=== PATIENT | male | born 1975 | race Two or more races ===

== ENCOUNTER 2016-10-06 14:56 | Emergency (ER) | payer MEDICAID, SELFPAY ==
[~2016-10-06] VITALS: Ht 188 cm; Wt 88.5 kg
[~2016-10-06 14:56] MED LIST: ALPRAZOLAM0.25 MG ORAL; DILANTIN100 MG ORAL; LEVETIRACETAM500 MG ORAL; ZANTAC150 MG ORAL
[2016-10-06 16:40] VITALS: BP 112/74
[2016-10-06 16:42] VITALS: BP 112/74
--- NOTE | 2016-10-06 17:05 | Emergency Room Report ---
History of Present Illness General Chief Complaint: Wound Recheck/Suture Removal Source: Patient Present Illness HPI The patient is a 41-year-old male presenting for suture removal. The patient was seen in this emergency department one week prior for a laceration of the face after falling due to a seizure. The patient has not been able to followup with primary doctor or neurologist yet. He denies any symptoms since the last ER visit including pain, numbness or tingling, weakness, headaches, dizziness, blurred vision, rash, fever, chills Allergies: Coded Allergies: PHENYTOIN (Unverified Allergy, Unknown, 02/14/16) Patient History Past Medical History: see triage record Pertinent Family History: none Reviewed Nursing Documentation: PMH: Agreed, PSxH: Agreed Nursing Documentation-PMH Past Medical History: No History, Except For Hx Gastrointestinal Problems: Yes - hx of appendectomy Hx Seizures: Yes Review of Systems All Other Systems: negative except mentioned in HPI Physical Exam Vital Signs Date Time Temp Pulse Resp B/P Pulse Ox O2 Delivery O2 Flow Rate FiO2 10/06/16 15:01 97.7 83 14 112/74 96 Room Air Sp02 EP Interpretation: reviewed, normal General Appearance: no apparent distress, alert, GCS 15, non-toxic Head: normocephalic, other - 14 sutures from R eyebrow to mid forehead ENT: hearing grossly normal, normal pharynx, no angioedema, normal voice Musculoskeletal: back normal, gait/station normal, normal range of motion, non- tender Neurologic: alert, oriented x3, responsive, motor strength/tone normal, sensory intact, normal gait, speech normal Psychiatric: judgement/insight normal, memory normal, mood/affect normal, no suicidal/homicidal ideation Skin: no rash, normal turgor, other - [address] No bleeding. No DC. well healing Lymphatic: no adenopathy Medical Decision Making PA Attestation Dr. Mcfadden is my supervising physician. Patient management was discussed with my supervising physician Diagnostic Impression: Primary Impression: Encounter for removal of sutures Additional Impression: Encounter for wound re-check ER Course The patient is a 41-year-old male presenting for suture removal. Differential diagnosis considered: Wound infection, nonhealing wound, cellulitis , abscess Physical exam: Vitals within normal limits. There are [address] from the right eyebrow to the midforehead. Well approximated. No bleeding. No erythema. No discharge Suture removal: 14 simple interrupted sutures were removed without complication. The patient will continue to keep the wound clean and dry. He will followup with neurologist as soon as possible. ER precautions are given Last Vital Signs Date Time Temp Pulse Resp B/P Pulse Ox O2 Delivery O2 Flow Rate FiO2 10/06/16 16:42 97.7 65 14 112/74 96 Room Air Status: improved Disposition: HOME, SELF-CARE Condition: Improved Referrals: NOT CHOSEN IPA/MD,REFERRING Patient Instructions: Wound Check, Suture Removal, Care After Additional Instructions: I discussed my findings with the patient. All questions and concerns have been answered. Treatment and medication compliance have been addressed. I advised the patient that they need to follow up with PMD in 3-5 days. Return to ED if symptoms worsen, new symptoms arise, or if needed for any reason. Patient verbalized understanding of discharge instructions. The patient will continue to keep the wound clean and dry. The patient is to followup with primary doctor and neurologist as soon as possible ADAMARIS THOMAS October 06, 2016 17:05
== END 2016-10-06 16:46 | disposition home or self-care (01) ==
LOC: EMR 15:17
DX: Z48.02 Encounter for removal of sutures (principal)
CPT/HCPCS: 99281

== ENCOUNTER 2016-12-11 10:57 | Emergency (ER) | payer MEDICAID ==
[~2016-12-11] VITALS: Ht 188 cm; Wt 88.5 kg
[2016-12-11] MEDS ORDERED: KEPPRA500 M4 ORAL (11:03)
[2016-12-11 11:35] VITALS: BP 119/84
[2016-12-11] MEDS ORDERED: Albuterol ud Inhalation HHN ONE (11:45)
[2016-12-11] MEDS ORDERED: Ipratropium 0.02% Inh Soln 2.5ml UD HHN ONE (11:45)
--- NOTE | 2016-12-11 13:02 | Emergency Room Report ---
History of Present Illness General Chief Complaint: Upper Respiratory Illness Source: Patient, Medical Record Present Illness HPI Several days of URI with wheezing. Productive cough with phlegm. Feels breathless. Denies chest pain. No NVD. No chills or fevers. GONG slight. No rashes. [place] worse after smoking (less able to get breath). Dayquil with some help. Seen here September for seizure. On meds now. No rashes, extremity pain, dysuria. Anxious. Allergies: Coded Allergies: PHENYTOIN (Unverified Allergy, Unknown, 02/14/16) Patient History Past Medical History: see triage record Social History: Reports: drug use - in past, smoking Social History Narrative at home Reviewed Nursing Documentation: PMH: Agreed, PSxH: Agreed Nursing Documentation-PMH Past Medical History: No History, Except For Hx Gastrointestinal Problems: Yes - hx of appendectomy Hx Seizures: Yes Review of Systems All Other Systems: negative except mentioned in HPI Physical Exam Vital Signs Date Time Temp Pulse Resp B/P Pulse Ox O2 Delivery O2 Flow Rate FiO2 12/11/16 11:01 98.2 94 16 116/79 96 Room Air General Appearance: well appearing, no apparent distress, alert, GCS 15 Head: normocephalic, other - old scar R forehead Eyes: bilateral eye PERRL, bilateral eye Scleral Injection ENT: hearing grossly normal, normal voice, uvula midline, moist mucus membranes Neck: full range of motion, supple Respiratory: no respiratory distress, speaking full sentences, wheezing, expiration - post tussive Cardiovascular #1: regular rate, rhythm Cardiovascular #2: 2+ radial (L) Gastrointestinal: non tender, scaphoid Musculoskeletal: back normal, digits/nails normal, gait/station normal, normal range of motion, no calf tenderness Neurologic: alert, oriented x3, normal gait, grossly normal Psychiatric: mood/affect normal Skin: no rash Medical Decision Making Diagnostic Impression: Primary Impression: Acute bronchitis with bronchospasm ER Course Patient with cough, wheezing and productive phlegm. DDx; pneumonia, bronchitis , bronchospasm amongst others. As wheezing with purulent phlegm, antibiotics and breathing treatments indicated. Improved with albuterol. Xray possibly mycoplasma. Patient not dyspneic and not toxic. Patient stable for outpatient observation and treatment. Chest X-Ray Diagnostic Results Chest X-Ray Diagnostic Results : Chest X-Ray Ordered: Yes # of Views/Limited/Complete: 1 View Indication: Shortness of Breath EP Interpretation: Yes Interpretation: no consolidation, no effusion, no pneumothorax, other - possible mycoplasma - though mainly clear Impression: No acute disease Interpreting ER Provider: Electronically signed Nate Mcfadden MD Last Vital Signs Date Time Temp Pulse Resp B/P Pulse Ox O2 Delivery O2 Flow Rate FiO2 12/11/16 13:15 86 16 103/82 100 Room Air 12/11/16 11:35 98.4 Status: improved Disposition: HOME, SELF-CARE Condition: Improved Scripts Albuterol Sulfate* (ALBUTEROL SULFATE MDI*) 8.5 Gm Hfa.aer.ad 2 PUFF INH Q6H, #1 EA 0 Refills Prov: Nate Mcfadden M.D. 12/11/16 Azithromycin* (ZITHROMAX*) 250 Mg Tablet 250 MG ORAL DAILY for 4 Days, TAB 0 Refills Prov: Nate Mcfadden M.D. 12/11/16 Guaifenesin/Codeine Phos* (ROBITUSSIN AC*) 118 Ml Liquid 5 ML ORAL Q6H Y for For Cough, #90 ML 0 Refills Prov: Nate Mcfadden M.D. 12/11/16 Referrals: [facility],REFERRING (PCP) Nate Mcfadden M.D. Dec 11, 2016 13:02
[2016-12-11] MEDS ORDERED: ALBUTEROL SULF8.5 GM INH (13:04)
[2016-12-11] MEDS ORDERED: GUAIFENESIN-CO118 M1 ORAL (13:04)
[2016-12-11] MEDS ORDERED: AZITHROMYCIN250 MG ORAL (13:04)
[2016-12-11 13:15] VITALS: BP 103/82
--- NOTE | 2016-12-11 15:02 | Diagnostic Imaging Report ---
Indication: COUGH shortness of breath Technique: One view of the chest Comparison: 08/06/2014 Findings: Lungs and pleural spaces are clear. Heart size is normal . No significant interim change Impression: No acute process
== END 2016-12-11 13:18 | disposition home or self-care (01) ==
LOC: EMR 11:25
DX: J20.9 Acute bronchitis, unspecified (principal); Z87.891 Personal history of nicotine dependence; Z88.8 Allergy status to other drugs, medicaments and biological substances
CPT/HCPCS: 71010; 94640; 99284

== ENCOUNTER 2018-11-14 01:46 | Emergency (ER) | payer MEDICAID, OTHER ==
[~2018-11-14] VITALS: Ht 188 cm; Wt 83.9 kg
[~2018-11-14 01:46] MED LIST changes: +ALBUTEROL SULF8.5 GM INH; +AZITHROMYCIN250 MG ORAL; +CLINDAMYCIN HC150 MG ORAL; +GUAIFENESIN-CO118 M1 ORAL; +IBUPROFEN600 MG ORAL; +KEPPRA500 M4 ORAL
[2018-11-14] MEDS: Ketorolac 30mg Inj IV ONE (02:17)
--- NOTE | 2018-11-14 02:17 | Emergency Room Report ---
History of Present Illness General Chief Complaint: Chest Pain Source: Patient Present Illness HPI Patient is a 43-year-old male who presented after increased sharp left-sided chest pain. Patient had acute onset of symptoms. He reports having sharp pain to the left side of his chest. He denies any prior cardiac history. He denies any recent travel. He reports having prior history of seizures. Patient denies any drug use. He reports having severe pain which was unchanged by position.He reports having palpitations and tachycardia. Allergies: Coded Allergies: PHENYTOIN (Unverified Allergy, Unknown, 02/14/16) Patient History Past Medical History: seizures Reviewed Nursing Documentation: PMH: Agreed; PSxH: Agreed Nursing Documentation-PMH Hx Gastrointestinal Problems: Yes - hx of appendectomy Hx Seizures: Yes Review of Systems All Other Systems: negative except mentioned in HPI Physical Exam Vital Signs Date Time Temp Pulse Resp B/P (MAP) Pulse Ox O2 Delivery O2 Flow Rate FiO2 11/14/18 01:52 138 22 97 Room Air Sp02 EP Interpretation: reviewed, normal General Appearance: normal inspection, well appearing, no apparent distress, alert, GCS 15 Head: atraumatic ENT: normal ENT inspection, hearing grossly normal, normal voice Neck: normal inspection, full range of motion, supple, no bony tend Respiratory: normal inspection, lungs clear, normal breath sounds, no respiratory distress, no retraction, no wheezing Cardiovascular #1: no edema, tachycardia Gastrointestinal: normal inspection, normal bowel sounds, non tender, soft, no guarding, no hernia Genitourinary: no CVA tenderness Musculoskeletal: normal inspection, back normal, normal range of motion Neurologic: normal inspection, alert, oriented x3, responsive, 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 Differential diagnosis include was not limited to alcohol withdrawal, methanol ingestion, amphetamine abuse among others. Because of complexity of patient's case laboratory testing and imaging studies were ordered.EKG interpreted by me shows sinus tachycardia without acute ST or T wave changes. CT the chest read by radiology showed no evidence of acute pulmonary embolism or pneumonia. Patient was noted to be initially tachycardic and was given IV fluids with improvement in symptoms and tachycardia.. Patient stated he felt better and wanted to go home. Patient appears to be stable for outpatient evaluation he was advised outpatient evaluation by his primary care physician for recheck. Labs Test 11/14/18 02:02 11/14/18 04:16 White Blood Count 7.5 K/UL (4.8-10.8) Red Blood Count 5.14 M/UL (4.70-6.10) Hemoglobin 15.1 G/DL (14.2-18.0) Hematocrit 43.2 % (42.0-52.0) Mean Corpuscular Volume 84 FL (80-99) Mean Corpuscular Hemoglobin 29.3 PG (27.0-31.0) Mean Corpuscular Hemoglobin Concent 34.8 G/DL (32.0-36.0) Red Cell Distribution Width 11.2 % (11.6-14.8) Platelet Count 195 K/UL (150-450) Mean Platelet Volume 7.2 FL (6.5-10.1) Neutrophils (%) (Auto) 49.8 % (45.0-75.0) Lymphocytes (%) (Auto) 37.5 % (20.0-45.0) Monocytes (%) (Auto) 6.9 % (1.0-10.0) Eosinophils (%) (Auto) 4.8 % (0.0-3.0) Basophils (%) (Auto) 1.0 % (0.0-2.0) Prothrombin Time 10.0 SEC (9.30-11.50) Prothromb Time International Ratio 0.9 (0.9-1.1) Activated Partial Thromboplast Time 26 SEC (23-33) D-Dimer 0.59 mg/L FEU (0.00-0.49) Sodium Level 139 MMOL/L (136-145) Potassium Level 3.5 MMOL/L (3.5-5.1) Chloride Level 102 MMOL/L (98-107) Carbon Dioxide Level 30 MMOL/L (21-32) Anion Gap 7 mmol/L (5-15) Blood Urea Nitrogen 18 mg/dL (7-18) Creatinine 1.0 MG/DL (0.55-1.30) Estimat Glomerular Filtration Rate > 60 mL/min (>60) Glucose Level 134 MG/DL (74-106) Calcium Level 9.1 MG/DL (8.5-10.1) Total Bilirubin 0.5 MG/DL (0.2-1.0) Aspartate Amino Transf (AST/SGOT) 42 U/L (15-37) Alanine Aminotransferase (ALT/SGPT) 36 U/L (12-78) Alkaline Phosphatase 56 U/L (46-116) Total Creatine Kinase 1765 U/L (26-308) Creatine Kinase MB 9.4 NG/ML (0.0-3.6) Creatine Kinase MB Relative Index 0.5 Troponin I 0.000 ng/mL (0.000-0.056) Pro-B-Type Natriuretic Peptide 31 pg/mL (0-125) Total Protein 7.9 G/DL (6.4-8.2) Albumin 4.0 G/DL (3.4-5.0) Globulin 3.9 g/dL Albumin/Globulin Ratio 1.0 (1.0-2.7) Lipase 172 U/L (73-393) Urine Opiates Screen Negative (NEGATIVE) Urine Barbiturates Screen Negative (NEGATIVE) Phencyclidine (PCP) Screen Negative (NEGATIVE) Urine Amphetamines Screen Negative (NEGATIVE) Urine Benzodiazepines Screen Negative (NEGATIVE) Urine Cocaine Screen Negative (NEGATIVE) Urine Marijuana (THC) Screen Positive (NEGATIVE) Last Vital Signs Date Time Temp Pulse Resp B/P (MAP) Pulse Ox O2 Delivery O2 Flow Rate FiO2 11/14/18 01:52 138 22 97 Room Air Status: improved Disposition: HOME, SELF-CARE Condition: Stable Scripts Omeprazole (OMEPRAZOLE) 20 Mg Capsule.dr 20 MG ORAL DAILY, #30 CAP Prov: Jose Roberto Pichardo MD 11/14/18 Ibuprofen* (MOTRIN*) 600 Mg Tablet 600 MG ORAL Q8H PRN for For Pain, #30 TAB 0 Refills Prov: Jose Roberto Pichardo MD 11/14/18 Jose Roberto Pichardo MD Nov 14, 2018 02:17
[2018-11-14 02:22] LABS: EOSINOPHILS % (AUTO) 4.8 % (0.0-3.0); HEMATOCRIT 43.2 % (42.0-52.0); HEMOGLOBIN 15.1 G/DL (14.2-18.0); LYMPHOCYTES % (AUTO) 37.5 % (20.0-45.0); MEAN CORPUSCULAR VOLUME 84 FL (80-99); MONOCYTES % (AUTO) 6.9 % (1.0-10.0); NEUTROPHILS % (AUTO) 49.8 % (45.0-75.0); PLATELET COUNT 195 K/UL (150-450); RED BLOOD COUNT 5.14 M/UL (4.70-6.10); RED CELL DISTRIBUTION WIDTH 11.2 % (11.6-14.8); WHITE BLOOD COUNT 7.5 K/UL (4.8-10.8)
[2018-11-14 02:34] LABS: INR 0.9 (0.9-1.1)
[2018-11-14 02:35] LABS: ANION GAP 7 mmol/L (5-15); BLOOD UREA NITROGEN 18 mg/dL (7-18); CALCIUM 9.1 MG/DL (8.5-10.1); CARBON DIOXIDE 30 MMOL/L (21-32); CHLORIDE 102 MMOL/L (98-107); POTASSIUM 3.5 MMOL/L (3.5-5.1); SODIUM 139 MMOL/L (136-145)
[2018-11-14] MEDS: LORazepam Inj 2mg/ml 1ml IV ONE (02:38)
[2018-11-14 02:48] LABS: ALANINE AMINOTRANSFERASE 36 U/L (12-78); ALKALINE PHOSPHATASE 56 U/L (46-116); ASPARTATE AMINO TRANSFERASE 42 U/L (15-37); BILIRUBIN,TOTAL 0.5 MG/DL (0.2-1.0); CKMB 9.4 NG/ML (0.0-3.6); CREATINE KINASE 1765 U/L (26-308)
[2018-11-14] MEDS ORDERED: Isovue-370 150ml vial INJ PRN (03:45)
[2018-11-14] MEDS: Albuterol/Ipratropium 3ml neb HHN ONE (04:00)
[2018-11-14 05:13] VITALS: BP 110/62
[2018-11-14] MEDS ORDERED: IBUPROFEN600 MG ORAL (06:09)
[2018-11-14] MEDS ORDERED: OMEPRAZOLE20 M2 ORAL (06:09)
[2018-11-14 06:24] VITALS: BP 110/62
--- NOTE | 2018-11-14 09:15 | Diagnostic Imaging Report ---
ndication: Chest pain and shortness of breath for one day Technique: IV administration nonionic contrast. Spiral acquisitions obtained from the lung bases to the lung apices. Multiplanar and 3-D reconstructions were generated. Total dose length product 726.47 mGycm. CTDIvol(s) 22.41 mGy. Dose reduction achieved using automated exposure control Comparison: none Findings: Portions of the lung bases are cut off of the exam. Pulmonary artery opacification is adequate. There is some image degradation at the lung bases due to motion artifact. No definite intraluminal filling defects or other findings to suggest acute pulmonary embolus demonstrated. No pulmonary artery dilatation or right ventricular dilatation. Normal branching anatomy of the great neck vessels which are patent. The lungs demonstrate a calcified granuloma in the right upper lobe. There is some linear atelectasis or scarring at both lung bases. No infiltrates, effusions, congestion, masses, or nodule demonstrated. There is minimal scarring and bullous change at the lung apices. The heart is upper limits normal in size. No pericardial effusion. No mediastinal or hilar mass or adenopathy. Normal esophagus. The included thyroid is unremarkable. No axillary or chest wall mass or adenopathy. There is mild thoracic kyphotic deformity. There is a wedge compression fracture deformity of the T5 vertebral body and questionably slightly of the T6 vertebral body. Impression: No evidence of pulmonary embolus or other acute thoracic pathology Evidence old granulomatous disease in the right lung Minimal bilateral basilar atelectasis or scarring Age-indeterminate T5 vertebral body compression fracture and questionable T6 mild compression fracture This agrees with the preliminary interpretation provided overnight by [facility]. The CT scanner at [facility] is accredited by the [employer] and the scans are performed using protocols designed to limit radiation exposure to as low as reasonably achievable to attain images of sufficient resolution adequate for diagnostic evaluation.
--- NOTE | 2018-11-14 09:38 | Diagnostic Imaging Report ---
Indication: Chest pain for 2 hours Technique: One view of the chest Comparison: none Findings: Inspiration is suboptimal. The lungs and pleural spaces are clear. The heart size is upper limits of normal. There is no significant interim change Impression: No acute process
== END 2018-11-14 06:25 | disposition home or self-care (01) ==
LOC: EMR 02:28
DX: R07.89 Other chest pain (principal); E86.0 Dehydration
CPT/HCPCS: 36415; 71045; 71275; 80053; 80307; 82550; 82553; 83690; 83880; 84484; 85025; 85379; 85610; 85730; 93005; 94640; 94664; 96361; 96374; 96375; 99284; J1885; Q9967; S0028; J7620

== ENCOUNTER 2018-12-12 21:04 | Emergency (ER) | payer OTHER ==
[~2018-12-12] VITALS: Ht 175.3 cm; Wt 77.1 kg
[~2018-12-12 21:04] MED LIST changes: +OMEPRAZOLE20 M2 ORAL
[2018-12-12 21:15] VITALS: BP 133/79
--- NOTE | 2018-12-12 21:15 | NUR ---
ED Nurse Note: Pt came from home c/o "fast heart rate" that occured twice today. Pt stated his LT arm felt weak and pain, LT eye became blurty, back of head has a tingely sesnation. 95HR, NSR. patient is alert and oriented x4, ambulatory with a steady gait
--- NOTE | 2018-12-12 21:26 | Emergency Room Report ---
History of Present Illness General Chief Complaint: Palpitations Source: Patient Present Illness HPI Is a 43-year-old male with history of seizure and previous methamphetamine abuse. Also history anxiety. He presents with chief complaint of palpitation. Occurred twice a day. He said heart was beating fast. Letter for a few minutes. He has some clamminess and numbness to his face and head. Also some sharp chest pain. This is similar to previous episode. He was here last month and work-up was negative for ACS and PE. 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 He is asymptomatic right now. Allergies: Coded Allergies: PHENYTOIN (Unverified Allergy, Unknown, 02/14/16) Patient History Past Medical History: see triage record, old chart reviewed Past Surgical History: appy Pertinent Family History: none Social History: Denies: smoking Immunizations: other Reviewed Nursing Documentation: PMH: Agreed; PSxH: Agreed Nursing Documentation-PMH Hx Gastrointestinal Problems: Yes - hx of appendectomy Hx Seizures: Yes Review of Systems Eye: Denies: eye pain, blurred vision ENT: Denies: ear pain, nose congestion, throat swelling Respiratory: Denies: cough, shortness of breath Cardiovascular: Reports: chest pain, palpitations Gastrointestinal: Denies: abdominal pain, diarrhea, nausea, vomiting Musculoskeletal: Denies: back pain, joint pain Skin: Denies: rash Neurological: Denies: headache, numbness Endocrine: Denies: increased thirst, increased urine Hematologic/Lymphatic: Denies: easy bruising All Other Systems: negative except mentioned in HPI Physical Exam Vital Signs Date Time Temp Pulse Resp B/P (MAP) Pulse Ox O2 Delivery O2 Flow Rate FiO2 12/12/18 21:15 98.2 95 13 133/79 (97) 98 Room Air Vitals normal Sp02 EP Interpretation: reviewed, normal General Appearance: well appearing, no apparent distress, alert Head: normocephalic, atraumatic Eyes: bilateral eye PERRL, bilateral eye EOMI ENT: hearing grossly normal, normal pharynx Neck: full range of motion, supple, no meningismus Respiratory: chest non-tender, lungs clear, normal breath sounds Cardiovascular #1: regular rate, rhythm, no murmur Gastrointestinal: normal bowel sounds, non tender, no mass, no organomegaly, no bruit, non-distended Musculoskeletal: back normal, gait/station normal, normal range of motion Psychiatric: mood/affect normal Medical Decision Making Diagnostic Impression: Primary Impression: Palpitations ER Course Patient presents with palpitation. This may be secondary to anxiety. Vitals are normal. Heart rate normal here. EKG normal. Will discharge home with recommendation for Holter monitor for log haul operator. EKG Diagnostic Results Rate: normal Rhythm: NSR ST Segments: no acute changes Rhythm Strip Diag. Results EP Interpretation: yes Rate: 89 Rhythm: NSR, no PVC's, no ectopy Last Vital Signs Date Time Temp Pulse Resp B/P (MAP) Pulse Ox O2 Delivery O2 Flow Rate FiO2 12/12/18 21:15 98.2 95 13 133/79 (97) 98 Room Air Status: unchanged Disposition: HOME, SELF-CARE Condition: Stable Patient Instructions: Palpitations Additional Instructions: Avoid smoking and alcohol. Follow-up with your doctor in a week. You may need a referral to see a log haul operator for Holter monitor. Return if symptoms worsen. Henry Ross MD Dec 12, 2018 21:26
[2018-12-12 21:30] VITALS: BP 133/79
--- NOTE | 2018-12-12 21:30 | NUR ---
ED Nurse Note: FIRST CONTACT W/PT D/C INSTRUCTIONS GIVEN TO PT, INSTRUCTED TO FOLLOW UP W/PMD, COME BACK TO ER FOR ANY WORSENING CONDITION, PT VERB UNDERSTANDING OF D/C AMB IN STABLE CONDITION. PROVIDED EKG COPY TO SHOW IT TO PMD.
--- NOTE | 2018-12-13 15:52 | Cardiology Report ---
APPROVED REPORT EKG Measurement Heart [id number] Sinus rhythm with 1st degree AV block Otherwise normal ECG
== END 2018-12-12 21:30 | disposition home or self-care (01) ==
LOC: EMR 21:16
DX: R00.2 Palpitations (principal); R07.89 Other chest pain; R20.0 Anesthesia of skin; Z86.69 Personal history of other diseases of the nervous system and sense organs
CPT/HCPCS: 93005; 99282

== ENCOUNTER 2019-01-12 20:58 | Emergency (ER) | payer OTHER ==
[~2019-01-12] VITALS: Ht 188 cm; Wt 90.7 kg
[2019-01-12] MEDS ORDERED: KEPPRA1000 MG ORAL (21:10)
--- NOTE | 2019-01-12 21:13 | NUR ---
ED Nurse Note: Pt ambulated to ED from home c/o 8/10 pressure in chest [id number], also reports feeling lightheaded. Pt is A&Ox4, VSS, ekg done
--- NOTE | 2019-01-12 21:22 | Emergency Room Report ---
History of Present Illness General Chief Complaint: Chest Pain Source: Patient Present Illness HPI This a 43-year-old male with a history of anxiety and also history of methamphetamine use. He said he has not used it for over 10 years. He presents with chief complaint of palpitation and chest pain. His chronic issue for him. Occur approximately every month or so. He said after smoking marijuana he felt some palpitation and chest pressure. This occurred about an hour ago. No fever chills but no nausea no vomiting. No radiation of the pain. [place] better now. Denies any diaphoresis. No exertional component. Allergies: Coded Allergies: PHENYTOIN (Unverified Allergy, Unknown, 01/12/19) Patient History Past Medical History: see triage record, old chart reviewed Past Surgical History: none Pertinent Family History: none Social History: Reports: smoking, drug use - History of methamphetamine Immunizations: other Reviewed Nursing Documentation: PMH: Agreed; PSxH: Agreed Nursing Documentation-PMH Hx Gastrointestinal Problems: Yes - hx of appendectomy Hx Seizures: Yes Review of Systems Eye: Denies: eye pain, blurred vision ENT: Denies: ear pain, nose congestion, throat swelling Respiratory: Denies: cough, shortness of breath Cardiovascular: Reports: chest pain, palpitations Gastrointestinal: Denies: abdominal pain, diarrhea, nausea, vomiting Musculoskeletal: Denies: back pain, joint pain Skin: Denies: rash Neurological: Denies: headache, numbness Endocrine: Denies: increased thirst, increased urine Hematologic/Lymphatic: Denies: easy bruising All Other Systems: negative except mentioned in HPI Physical Exam Vital Signs Date Time Temp Pulse Resp B/P (MAP) Pulse Ox O2 Delivery O2 Flow Rate FiO2 01/12/19 21:00 98.4 110 18 145/89 (107) 98 Room Air Vitals with tachycardia Sp02 EP Interpretation: reviewed, normal General Appearance: well appearing, no apparent distress, alert Head: normocephalic, atraumatic Eyes: bilateral eye PERRL, bilateral eye EOMI ENT: hearing grossly normal, normal pharynx Neck: full range of motion, supple, no meningismus Respiratory: chest non-tender, lungs clear, normal breath sounds Cardiovascular #1: regular rate, rhythm, no murmur Gastrointestinal: normal bowel sounds, non tender, no mass, no organomegaly, no bruit, non-distended Musculoskeletal: back normal, gait/station normal, normal range of motion Psychiatric: mood/affect normal Medical Decision Making Diagnostic Impression: Primary Impression: Atypical chest pain Additional Impression: Palpitations ER Course Patient with atypical chest pain and palpitation. Most likely anxiety related. No evidence of ACS, PE, dissection to name a few. Will discharge home. EKG Diagnostic Results Rate: normal Rhythm: NSR ST Segments: no acute changes ASA given to the pt in ED: Yes Rhythm Strip Diag. Results EP Interpretation: yes Rate: 88 Rhythm: NSR, no PVC's, no ectopy Chest X-Ray Diagnostic Results Chest X-Ray Diagnostic Results : Chest X-Ray Ordered: Yes # of Views/Limited/Complete: 1 View Indication: Chest Pain EP Interpretation: Yes Interpretation: no consolidation, no effusion, no pneumothorax, no acute cardiopulmonary disease Impression: No acute disease Electronically Signed by: Henry Ross MD Last Vital Signs Date Time Temp Pulse Resp B/P (MAP) Pulse Ox O2 Delivery O2 Flow Rate FiO2 01/12/19 21:00 98.4 110 18 145/89 (107) 98 Room Air Status: improved Disposition: HOME, SELF-CARE Condition: Stable Patient Instructions: Nonspecific Chest Pain Additional Instructions: Follow-up with your doctor in 7 days. Return if symptoms worsen. Henry Ross MD Jan 12, 2019 21:22
[2019-01-12 21:26] VITALS: BP 145/89
[2019-01-12] MEDS ORDERED: Aspirin Baby 81mg ORAL ONE (21:30)
[2019-01-12 21:45] LABS: BASOPHILS % (AUTO) 1.3 % (0.0-2.0); EOSINOPHILS % (AUTO) 5.4 % (0.0-3.0); HEMATOCRIT 47.8 % (42.0-52.0); HEMOGLOBIN 16.7 G/DL (14.2-18.0); LYMPHOCYTES % (AUTO) 34.4 % (20.0-45.0); MEAN CORPUSCULAR VOLUME 84 FL (80-99); MONOCYTES % (AUTO) 6.8 % (1.0-10.0); NEUTROPHILS % (AUTO) 52.1 % (45.0-75.0); PLATELET COUNT 200 K/UL (150-450); RED BLOOD COUNT 5.71 M/UL (4.70-6.10); RED CELL DISTRIBUTION WIDTH 10.6 % (11.6-14.8); WHITE BLOOD COUNT 6.8 K/UL (4.8-10.8)
[2019-01-12 21:49] LABS: ANION GAP 8 mmol/L (5-15); BLOOD UREA NITROGEN 13 mg/dL (7-18); CALCIUM 9.3 MG/DL (8.5-10.1); CARBON DIOXIDE 29 MMOL/L (21-32); CHLORIDE 102 MMOL/L (98-107); CREATININE 0.9 MG/DL (0.55-1.30); POTASSIUM 4.1 MMOL/L (3.5-5.1); SODIUM 139 MMOL/L (136-145)
[2019-01-12 22:01] LABS: ALANINE AMINOTRANSFERASE 26 U/L (12-78); ALBUMIN 4.3 G/DL (3.4-5.0); ALKALINE PHOSPHATASE 60 U/L (46-116); ASPARTATE AMINO TRANSFERASE 22 U/L (15-37); BILIRUBIN,TOTAL 0.5 MG/DL (0.2-1.0); CKMB 1.4 NG/ML (0.0-3.6); CREATINE KINASE 153 U/L (26-308)
[2019-01-12 22:45] VITALS: BP 145/89
--- NOTE | 2019-01-12 22:45 | NUR ---
ER DISCHARGE NOTE: Patient is cleared to be discharged per ERMD, pt is aox4, on room air, with stable vital signs. pt was given dc and prescription instructions, pt was able to verbalize understanding, pt id band and iv site removed without complications. pt is able to ambulate with steady gait. pt took all belongings.
--- NOTE | 2019-01-13 12:46 | Diagnostic Imaging Report ---
Indication: Chest pain Comparison: 11/14/2018 A single view chest radiograph was obtained. Findings: Cardiomediastinal appearance is within normal limits for age. The lungs are clear. Pulmonary vascularity is appropriate. The diaphragmatic contour is smooth and costophrenic angles are sharp. No pleural effusions are identified. The bones are unremarkable. Impression: No acute findings
== END 2019-01-12 22:45 | disposition home or self-care (01) ==
LOC: EMR 21:44
DX: R07.89 Other chest pain (principal); R00.2 Palpitations; Z90.49 Acquired absence of other specified parts of digestive tract; F17.200 Nicotine dependence, unspecified, uncomplicated; F41.9 Anxiety disorder, unspecified; F12.10 Cannabis abuse, uncomplicated
CPT/HCPCS: 36415; 71045; 80053; 82550; 82553; 84484; 85025; 93005; 99283

== ENCOUNTER 2019-04-20 14:15 | Emergency (ER) | payer MEDICAID, OTHER ==
[~2019-04-20] VITALS: Ht 188 cm; Wt 93.0 kg
[~2019-04-20 14:15] MED LIST changes: +KEPPRA1000 MG ORAL
--- NOTE | 2019-04-20 14:22 | NUR ---
ED Nurse Note: pt ambulated to ed c/o congestion and chest pain due to cough. pt states he smokes and has been having trouble excreting phlegm from throat
[2019-04-20 14:24] VITALS: BP 114/74
--- NOTE | 2019-04-20 14:40 | NUR ---
ED Nurse Note: xray and RT at bedside
--- NOTE | 2019-04-20 14:45 | NUR ---
ED Nurse Note:. xray complete
[2019-04-20] MEDS: Albuterol/Ipratropium 3ml neb HHN SCH ×2 (14:53→14:54)
--- NOTE | 2019-04-20 15:35 | Emergency Room Report ---
History of Present Illness General Chief Complaint: Upper Respiratory Illness Source: Patient Present Illness HPI 43-year-old male with history of tonic-clonic seizures currently controlled with Keppra and reporting that last seizure was 6 months ago, here complaining of 1 week of cough and congestion. Patient reports that he is a daily tobacco smoker and also smokes marijuana. Complains of tightness posttussive that started today. Denies pain radiation of chest. Denies palpitation, headache and dizziness, fever and chills. Denies all other URI symptoms at this time. Patient reports that he did take his Keppra this morning before coming to [facility]. Patient is sitting with stable vital signs and in mild distress due to cough and congestion. Complains of wheezing mainly at nighttime. Has not taken any medication for symptom relief. Denies abdominal pain, nausea vomiting, and other associated symptoms Allergies: Coded Allergies: PHENYTOIN (Unverified Allergy, Unknown, 01/12/19) Patient History Past Medical History: see triage record Past Surgical History: unable to obtain Pertinent Family History: none Social History: Reports: smoking Immunizations: UTD Reviewed Nursing Documentation: PMH: Agreed; PSxH: Agreed Nursing Documentation-PMH Past Medical History: No History, Except For Hx Gastrointestinal Problems: Yes - hx of appendectomy Hx Seizures: Yes Review of Systems All Other Systems: negative except mentioned in HPI Physical Exam Vital Signs Date Time Temp Pulse Resp B/P (MAP) Pulse Ox O2 Delivery O2 Flow Rate FiO2 04/20/19 14:18 98.2 101 20 114/74 (87) 97 Room Air 04/20/19 14:50 21 Sp02 EP Interpretation: reviewed, normal General Appearance: no apparent distress, alert, GCS 15, non-toxic Head: normocephalic, atraumatic Eyes: bilateral eye normal inspection, bilateral eye PERRL ENT: hearing grossly normal, no angioedema, normal voice, TMs + canals normal, moist mucus membranes, pharyngeal erythema Neck: full range of motion, supple, no meningismus, no bony tend, supple/symm/ no masses Respiratory: chest non-tender, no rhonchi, no respiratory distress, no retraction, no accessory muscle use, wheezing Cardiovascular #1: regular rate, rhythm, no edema, no murmur, normal capillary refill Gastrointestinal: normal inspection, non tender, soft Rectal: deferred Genitourinary: no CVA tenderness Musculoskeletal: back normal, digits/nails normal, gait/station normal, normal range of motion, non-tender Neurologic: alert, oriented x3, responsive, motor strength/tone normal, sensory intact, speech normal Psychiatric: judgement/insight normal, memory normal, mood/affect normal, no suicidal/homicidal ideation Skin: no rash Lymphatic: no adenopathy Medical Decision Making PA Attestation All diagnoses and treatment plans were reviewed and discussed with my supervising physician Dr. Marie Diagnostic Impression: Primary Impression: Atypical pneumonia Additional Impression: Chest pain, unspecified ER Course 43-year-old male with history of tonic-clonic seizures currently controlled with Keppra and reporting that last seizure was 6 months ago, here complaining of 1 week of cough and congestion. Patient reports that he is a daily tobacco smoker and also smokes marijuana. Complains of tightness posttussive that started today. Denies pain radiation of chest. Denies palpitation, headache and dizziness, fever and chills. Denies all other URI symptoms at this time. Patient reports that he did take his Keppra this morning before coming to [place] [facility]. Patient is sitting with stable vital signs and in mild distress due to cough and congestion. Complains of wheezing mainly at nighttime. Has not taken any medication for symptom relief. Denies abdominal pain, nausea vomiting, and other associated symptoms Ddx considered but are not limited to: bronchitis, PNA, URI viral, bacterial bronchitis Vital signs: are WNL, pt. is afebrile H&PE are most consistent with: Atypical pneumonia, unspecified chest pain ORDERS: EKG, chest x-ray, albuterol, Phenergan, Augmentin ED INTERVENTIONS: 3 doses of albuterol and ipratropium DISCHARGE: At this time pt. is stable for d/c to home. Will provide printed patient care instructions, and any necessary prescriptions. Care plan and follow up instructions have been discussed with the patient prior to discharge. Patient to follow-up with her primary care provider and return to emergency room worsening symptoms. Avoid smoking, also take medication as directed EKG Diagnostic Results Rate: normal Rhythm: NSR ST Segments: no acute changes Other Impression No acute ST changes Chest X-Ray Diagnostic Results Chest X-Ray Diagnostic Results : Chest X-Ray Ordered: Yes # of Views/Limited/Complete: 1 View Indication: Chest Pain EP Interpretation: Yes PA Xray: Interpretation reviewed, by supervising MD, and agrees with findings. Interpretation: no consolidation, no effusion, no pneumothorax Impression: No acute disease Electronically Signed by: Hortencia Gregg PA-C Last Vital Signs Date Time Temp Pulse Resp B/P (MAP) Pulse Ox O2 Delivery O2 Flow Rate FiO2 04/20/19 14:50 89 20 96 Room Air 21 04/20/19 14:24 98.2 114/74 Disposition: HOME, SELF-CARE Condition: Stable Scripts Promethazine Hcl (PROMETHAZINE HCL*) 6.25 Mg/5 Ml Syrup 5 ML ORAL Q6H, #120 ML 0 Refills Prov: Hortencia Byrnes 04/20/19 Albuterol Sulfate (VENTOLIN HFA) 18 Gm Hfa.aer.ad 2 PUFFS INH EVERY 6 HOURS, #18 GM 0 Refills Prov: Hortencia Byrnes 04/20/19 Amoxicillin/Potassium Clav 875-125* (AUGMENTIN 875-125 TABLET*) 1 Each Tablet 1 TAB ORAL TWICE A DAY for 10 Days, #20 TAB Prov: Hortencia Byrnes 04/20/19 Referrals: NOT CHOSEN IPA/,REFERRING (PCP) Patient Instructions: Nonspecific Chest Pain, [id number], Upper Respiratory Infection, Adult Additional Instructions: Take medication as directed, follow-up with your primary care provider, if worsening symptoms return to emergency room. Avoid smoking as it exacerbates your symptoms. Hortencia Byrnes Apr 20, 2019 15:35
[2019-04-20] MEDS ORDERED: VENTOLIN HFA18 GM INH (15:37)
[2019-04-20] MEDS ORDERED: AUGMENTIN 875-1 EAC1 ORAL (15:37)
[2019-04-20] MEDS ORDERED: PROMETHAZI6.25 MG/1 ORAL (15:37)
[2019-04-20 15:42] VITALS: BP 116/76
--- NOTE | 2019-04-20 15:44 | NUR ---
ED Nurse Note: pt dc per ermd order, pt given dc and prescription instructions; pt verblized understanding. pt took all belongings. pt denies pain.
--- NOTE | 2019-04-21 11:24 | Diagnostic Imaging Report ---
Indication: Chest pain Technique: One view of the chest Comparison: 01/12/2019 Findings: Lungs and pleural spaces are clear. Heart size is normal. No significant change Impression: No acute process
== END 2019-04-20 16:00 | disposition home or self-care (01) ==
LOC: EMR 15:05
DX: J18.9 Pneumonia, unspecified organism (principal); R07.9 Chest pain, unspecified; G40.909 Epilepsy, unspecified, not intractable, without status epilepticus; Z79.899 Other long term (current) drug therapy; F17.200 Nicotine dependence, unspecified, uncomplicated; F12.90 Cannabis use, unspecified, uncomplicated; Z90.89 Acquired absence of other organs
CPT/HCPCS: 71045; 93005; 94640; 94664; 99284; J7620

== ENCOUNTER 2019-05-27 23:24 | Emergency (ER) | payer OTHER ==
[~2019-05-27] VITALS: Ht 188 cm; Wt 93.0 kg
[~2019-05-27 23:24] MED LIST changes: +AUGMENTIN 875-1 EAC1 ORAL; +PROMETHAZI6.25 MG/1 ORAL; +VENTOLIN HFA18 GM INH
[2019-05-27] MEDS ORDERED: VIMPAT200 MG PO (23:32)
[2019-05-27 23:35] VITALS: BP 115/80
--- NOTE | 2019-05-27 23:35 | NUR ---
ED Nurse Note: Pt walked into ED from home c/o cough for the past week and chest pain/discomfort with cough that started today. Pt is aaox4, breathing is normal and unlabored, no cardiac distress noted. Pt is ambulatory with steady gait. Will continue to monitor.
[2019-05-27] MEDS ORDERED: Albuterol ud Inhalation HHN ONE (23:45)
[2019-05-27] MEDS ORDERED: Ipratropium 0.02% Inh Soln 2.5ml UD HHN ONE (23:45)
--- NOTE | 2019-05-27 23:49 | Emergency Room Report ---
History of Present Illness General Chief Complaint: Upper Respiratory Illness Source: Patient Present Illness HPI Patient presents with cough for 1 week and also is when he is recumbent. In addition he has some chest pain when he has the cough. Patient has history of seizures and gastritis. He takes Vimpat and Keppra. His last seizure was 3 months ago and his medications were changed at that time. He had some mild gastritis discomfort 2 weeks ago related to food. Allergies: Coded Allergies: PHENYTOIN (Unverified Allergy, Unknown, 01/12/19) Patient History Past Medical History: see triage record Reviewed Nursing Documentation: PMH: Agreed; PSxH: Agreed Nursing Documentation-PMH Past Medical History: No History, Except For Hx Gastrointestinal Problems: Yes Hx Seizures: Yes - epilepsy Physical Exam Vital Signs Date Time Temp Pulse Resp B/P (MAP) Pulse Ox O2 Delivery O2 Flow Rate FiO2 05/27/19 23:28 98.1 85 14 115/80 (92) 97 Room Air Medical Decision Making Diagnostic Impression: Primary Impression: Upper respiratory infection Qualified Codes: J06.9 - Acute upper respiratory infection, unspecified Additional Impressions: Bronchospasm Atypical chest pain Laboratory Tests Test 05/28/19 00:05 White Blood Count 6.6 K/UL (4.8-10.8) Red Blood Count 5.10 M/UL (4.70-6.10) Hemoglobin 14.8 G/DL (14.2-18.0) Hematocrit 42.5 % (42.0-52.0) Mean Corpuscular Volume 83 FL (80-99) Mean Corpuscular Hemoglobin 29.1 PG (27.0-31.0) Mean Corpuscular Hemoglobin Concent 34.9 G/DL (32.0-36.0) Red Cell Distribution Width 10.7 % (11.6-14.8) L Platelet Count 204 K/UL (150-450) Mean Platelet Volume 7.4 FL (6.5-10.1) Neutrophils (%) (Auto) 70.7 % (45.0-75.0) Lymphocytes (%) (Auto) 19.0 % (20.0-45.0) L Monocytes (%) (Auto) 6.5 % (1.0-10.0) Eosinophils (%) (Auto) 3.0 % (0.0-3.0) Basophils (%) (Auto) 0.7 % (0.0-2.0) Urine Color Pale yellow Urine Appearance Clear Urine pH 6 (4.5-8.0) Urine Specific [place] 1.015 (1.005-1.035) Urine Protein Negative (NEGATIVE) Urine Glucose (UA) Negative (NEGATIVE) Urine Ketones Negative (NEGATIVE) Urine Blood Negative (NEGATIVE) Urine Nitrite Negative (NEGATIVE) Urine Bilirubin Negative (NEGATIVE) Urine Urobilinogen Normal MG/DL (0.0-1.0) Urine Leukocyte Esterase Negative (NEGATIVE) Sodium Level 139 MMOL/L (136-145) Potassium Level 3.6 MMOL/L (3.5-5.1) Chloride Level 102 MMOL/L (98-107) Carbon Dioxide Level 30 MMOL/L (21-32) Anion Gap 7 mmol/L (5-15) Blood Urea Nitrogen 14 mg/dL (7-18) Creatinine 0.9 MG/DL (0.55-1.30) Estimate Glomerular Filtration Rate > 60 mL/min (>60) Glucose Level 107 MG/DL (74-106) H Calcium Level 8.6 MG/DL (8.5-10.1) Total Bilirubin 0.4 MG/DL (0.2-1.0) Aspartate Amino Transferase (AST) 20 U/L (15-37) Alanine Aminotransferase (ALT) 36 U/L (12-78) Alkaline Phosphatase 54 U/L (46-116) Total Creatine Kinase 176 U/L (26-308) Troponin I 0.000 ng/mL (0.000-0.056) Pro-B-Type Natriuretic Peptide 16 pg/mL (0-125) Total Protein 7.8 G/DL (6.4-8.2) Albumin 3.8 G/DL (3.4-5.0) Globulin 4.0 g/dL Albumin/Globulin Ratio 0.9 (1.0-2.7) L Urine Opiates Screen Negative (NEGATIVE) Urine Barbiturates Screen Negative (NEGATIVE) Phencyclidine (PCP) Screen Negative (NEGATIVE) Urine Amphetamines Screen Negative (NEGATIVE) Urine Benzodiazepines Screen Negative (NEGATIVE) Urine Cocaine Screen Negative (NEGATIVE) Urine Marijuana (THC) Screen Positive (NEGATIVE) H EKG Diagnostic Results Rate: normal Rhythm: NSR ST Segments: no acute changes - 1st degree av block Rhythm Strip Diag. Results EP Interpretation: yes Rhythm: NSR, no PVC's, no ectopy Chest X-Ray Diagnostic Results Chest X-Ray Diagnostic Results : Chest X-Ray Ordered: Yes # of Views/Limited/Complete: 1 View Indication: Other EP Interpretation: Yes Interpretation: no effusion, no pneumothorax, other - sl increased chowdhury Impression: Other Electronically Signed by: Electronically signed by Nate Mcfadden MD Last Vital Signs Date Time Temp Pulse Resp B/P (MAP) Pulse Ox O2 Delivery O2 Flow Rate FiO2 05/28/19 02:45 97.4 76 16 119/67 99 Room Air 05/28/19 00:06 21 Status: improved Disposition: HOME, SELF-CARE Condition: Improved Scripts Albuterol Sulfate* (ALBUTEROL SULFATE MDI*) 8.5 Gm Hfa.aer.ad 2 PUFF INH Q6H, #1 EA 0 Refills Prov: Nate Mcfadden MD 05/28/19 Acetaminophen (Tylenol) 325 Mg Tablet 650 MG ORAL Q6H PRN for Prn Pain/Headache/Temp > 101, #20 TAB 0 Refills Prov: Nate Mcfadden MD 05/28/19 Guaifenesin/Codeine Phos* (ROBITUSSIN AC*) 118 Ml Liquid 5 ML ORAL Q6H PRN for For Cough, #60 ML 0 Refills Prov: Nate Mcfadden MD 05/28/19 Nate Mcfadden MD May 27, 2019 23:49
[2019-05-28 00:18] LABS: BASOPHILS % (AUTO) 0.7 % (0.0-2.0); HEMATOCRIT 42.5 % (42.0-52.0); HEMOGLOBIN 14.8 G/DL (14.2-18.0); MEAN CORPUSCULAR VOLUME 83 FL (80-99); MONOCYTES % (AUTO) 6.5 % (1.0-10.0); NEUTROPHILS % (AUTO) 70.7 % (45.0-75.0); PLATELET COUNT 204 K/UL (150-450); RED CELL DISTRIBUTION WIDTH 10.7 % (11.6-14.8); WHITE BLOOD COUNT 6.6 K/UL (4.8-10.8)
[2019-05-28 00:34] LABS: ANION GAP 7 mmol/L (5-15); BLOOD UREA NITROGEN 14 mg/dL (7-18); CALCIUM 8.6 MG/DL (8.5-10.1); CARBON DIOXIDE 30 MMOL/L (21-32); CHLORIDE 102 MMOL/L (98-107); CREATININE 0.9 MG/DL (0.55-1.30); POTASSIUM 3.6 MMOL/L (3.5-5.1); SODIUM 139 MMOL/L (136-145)
[2019-05-28 00:45] LABS: ALANINE AMINOTRANSFERASE 36 U/L (12-78); ALBUMIN 3.8 G/DL (3.4-5.0); ALBUMIN/GLOBULIN RATIO 0.9 (1.0-2.7); ALKALINE PHOSPHATASE 54 U/L (46-116); ASPARTATE AMINO TRANSFERASE 20 U/L (15-37); BILIRUBIN,TOTAL 0.4 MG/DL (0.2-1.0); CREATINE KINASE 176 U/L (26-308)
[2019-05-28 00:52] LABS: APPEARANCE,URINE CLEAR; BILIRUBIN, URINE NEGATIVE (NEGATIVE); COLOR,URINE PALE YELLOW; GLUCOSE, URINE (UA) NEGATIVE (NEGATIVE); KETONES,URINE NEGATIVE (NEGATIVE); LEUKOCYTE ESTERASE ,URINE NEGATIVE (NEGATIVE); NITRITE,URINE NEGATIVE (NEGATIVE); PH,URINE 6 (4.5-8.0); PROTEIN,URINE NEGATIVE (NEGATIVE); UROBILINOGEN,URINE NORMAL MG/DL (0.0-1.0)
--- NOTE | 2019-05-28 01:30 | NUR ---
ED Nurse Note: Pt provided nourishment and blanket for comfort. Pt resting in bed, no acute distress. Will continue to monitor. VSS.
--- NOTE | 2019-05-28 02:27 | Diagnostic Imaging Report ---
EXAM: XR Chest, 1 View CLINICAL HISTORY: DYSPNEA TECHNIQUE: Frontal view of the chest. COMPARISON: No relevant prior studies available. FINDINGS: Lungs: Unremarkable. No consolidation. Pleural space: Unremarkable. No pneumothorax. Heart: Unremarkable. No cardiomegaly. Mediastinum: Unremarkable. Bones/joints: Unremarkable. IMPRESSION: No acute cardiopulmonary abnormality.
[2019-05-28] MEDS ORDERED: GUAIFENESIN-CO118 M1 ORAL (02:28)
[2019-05-28] MEDS ORDERED: ALBUTEROL SULF8.5 GM INH (02:28)
[2019-05-28] MEDS ORDERED: TYLENOL325 MG ORAL (02:28)
[2019-05-28 02:45] VITALS: BP 119/67
== END 2019-05-28 02:45 | disposition home or self-care (01) ==
LOC: EMR 23:48
DX: J06.9 Acute upper respiratory infection, unspecified (principal); J98.01 Acute bronchospasm; R07.89 Other chest pain; Z88.8 Allergy status to other drugs, medicaments and biological substances; G40.909 Epilepsy, unspecified, not intractable, without status epilepticus; I44.0 Atrioventricular block, first degree
CPT/HCPCS: 36415; 71045; 80053; 80307; 81003; 82550; 83880; 84484; 85025; 93005; Z7502; 99284

== ENCOUNTER 2020-03-22 15:35 | Emergency (ER) | payer MEDICAID ==
[~2020-03-22] VITALS: Ht 188 cm; Wt 90.7 kg
[~2020-03-22 15:35] MED LIST changes: +FAMOTIDINE20 MG ORAL; +TYLENOL325 MG ORAL; +VIMPAT200 MG PO
--- NOTE | 2020-03-22 15:44 | NUR ---
ED Nurse Note: Pt ambulated to ER c/o left knee and ankle pain s/p fall from being under sun too long. pt states that he did not hit his head. pt reports that his big toe is turning purple.
--- NOTE | 2020-03-22 15:50 | NUR ---
ED Nurse Note: xray taken
[2020-03-22] MEDS ORDERED: Ketorolac 30mg Inj IM ONE (16:30)
[2020-03-22] MEDS ORDERED: HYDROcodone/Acetamin 7.5/325 tab ORAL ONE (16:30)
--- NOTE | 2020-03-22 16:32 | Diagnostic Imaging Report ---
Indication: Knee pain status post injury Technique: 3 views of the left knee. Comparison: None Findings: There is an acute oblique fracture through the proximal fibula. There is overlying soft tissue swelling. The knee joint is maintained, without evidence of dislocation. No significant suprapatellar joint effusion. No radiopaque foreign body. IMPRESSION: Acute oblique fracture through the proximal fibula.
--- NOTE | 2020-03-22 16:34 | Diagnostic Imaging Report ---
Indication: Ankle pain status post injury Technique: 3 views of the left ankle Comparison: None Findings: Bone mineralization within normal limits. No acute fracture or dislocation is identified. Ankle mortise intact on these nonstress views. Small anterior ankle joint effusion suggested. No radioopaque foreign body. Impression: No acute fracture. Ankle mortise intact
--- NOTE | 2020-03-22 16:35 | Diagnostic Imaging Report ---
Indication: Pelvic pain status post injury Technique: 2 views of the left foot Comparison: None Findings: Bone mineralization within normal limits. No acute fracture is identified. Lisfranc alignment of the foot is maintained. There is no radiopaque foreign body. Impression: No acute fracture or dislocation.
--- NOTE | 2020-03-22 16:43 | Emergency Room Report ---
History of Present Illness General Chief Complaint: Lower Extremity Injury Present Illness HPI 44-year-old male with history of tonic-clonic seizures currently on [facility] neurologist with no recent seizure activity, not driving, here complaining of left knee and ankle left big toe pain x2 days. Patient reports that he was about to sit down as he missed a step and twisted his left knee and ankle 2 days ago. Rates the pain 10 out of 10 without radiation. Denies tingling and numbness. Patient is neurovascularly intact. Denies any head injury loss of consciousness. Denies any dizziness or seizure activity prior to his injury. Denies any urinary bowel incontinence. Has taken Tylenol for pain with minimal relief. Allergies: Coded Allergies: PHENYTOIN (Unverified Allergy, Unknown, 01/12/19) COVID-19 Screening COVID-19 risk:Contact w/high r: No Has patient experienced jenkins: No COVID-19 Testing performed AUGER SUPERVISOR: No Patient History Past Medical History: unable to obtain Past Surgical History: none Pertinent Family History: none Immunizations: UTD Reviewed Nursing Documentation: PMH: Agreed; PSxH: Agreed Nursing Documentation-PMH Hx Gastrointestinal Problems: Yes Hx Seizures: Yes - epilepsy Review of Systems All Other Systems: negative except mentioned in HPI Physical Exam Vital Signs Date Time Temp Pulse Resp B/P (MAP) Pulse Ox O2 Delivery O2 Flow Rate FiO2 03/22/20 15:39 97.9 73 18 119/77 (91) 95 Room Air Sp02 EP Interpretation: reviewed, normal General Appearance: normal inspection, alert, no apparent distress, GCS 15 Head: normocephalic, atraumatic Eyes: normal eye exam, PERRL, EOMI, lids + conjunctiva normal, no hyphema, no racoon eyes ENT: normal ENT inspection, TMs + canals normal, oropharynx normal, no bergeron signs Neck: trach midline, no bony tend, full range of motion without pain Respiratory: effort normal, no retractions, clear to auscultation, chest symmetrical, palpation of chest normal, speaking in full sentences Cardiovascular: regular rate, rhythm, no JVD Cardiovascular #2: 2+ femoral (R), 2+ femoral (L), 2+ dorsalis pedis (R), 2+ dorsalis pedis (L) Gastrointestinal: normal inspection, non-tender, non-distended, no rebound/guarding, normal bowel sounds Musculoskeletal: other - Bony tenderness left proximal fibula, patient is neurovascularly intact Skin: no rash Lymphatic: normal inspection Neurologic: oriented x3, sensory intact, motor strength/tone normal, normal speech Psychiatric: judgment & insight normal Procedures Splinting Splinting : Consent: Verbal Location: Left lower leg Hand-Made Type: plaster Splint: posterior long Pre-Proc Neuro Vasc Exam: normal Post-Proc Neuro Vasc Exam: normal Patient Tolerated: Well Complications: None Progress Crutches were provided, joseph Medical Decision Making PA Attestation ALL Diagnosis and treatment plan reviewed and discussed with my supervising physician Dr. Erickson Diagnostic Impression: Primary Impression: Fracture of proximal end of fibula Additional Impressions: Toe fracture Ankle sprain ER Course 44-year-old male with history of tonic-clonic seizures currently on [facility] neurologist with no recent seizure activity, not driving, here complaining of left knee and ankle left big toe pain x2 days. Patient reports that he was about to sit down as he missed a step and twisted his left knee and ankle 2 days ago. Rates the pain 10 out of 10 without radiation. Denies tingling and numbness. Patient is neurovascularly intact. Denies any head injury loss of consciousness. Denies any dizziness or seizure activity prior to his injury. Denies any urinary bowel incontinence. Has taken Tylenol for pain with minimal relief. Ddx considered but are not limited to: Knee sprain, strain, fracture, contusion, meniscus tear injury Vital signs: are WNL, pt. is afebrile H&PE are most consistent with: Fracture of proximal end of fibula, toe fracture, ankle sprain ORDERS: Knee x-ray, ankle x-ray, foot x-ray, [place], ibuprofen 800 ER intervention: Toradol, [place], splint was applied and crutches provided DISCHARGE: At this time pt. is stable for d/c to home. Will provide printed jigar ent care instructions, and any necessary prescriptions. Care plan and follow up instructions have been discussed with the patient prior to discharge. Patient take medication as directed, follow-up with artillery specialist, if worsening symptoms return to the emergency room Other X-Ray Diagnostic Results Other X-Ray Diagnostic Results #1: X-Ray ordered: Left knee # of Views/Limited Vs Complete: 3 View Indication: Pain EP Interpretation: Yes Interpretation: no dislocation, other - Fracture of proximal fibula Impression: Other - Fracture of proximal fibula Electronically Signed by: Hortencia Gregg PA-C Other X-Ray Diagnostic Results #2: X-Ray ordered: Left ankle # of Views/Limited Vs Complete: 3 View Indication: Pain EP Interpretation: Yes Interpretation: no dislocation, no fractures Impression: No acute disease Electronically Signed by: Hortencia Gregg PA-C Other X-Ray Diagnostic Results #3: X-Ray ordered: Left foot # of Views/Limited Vs Complete: 3 View Indication: Pain EP Interpretation: Yes Interpretation: no dislocation, no fractures, other - Possible fracture big toe Impression: Other - possible fx big toe Electronically Signed by: Hortencia Gregg PA-C Last Vital Signs Date Time Temp Pulse Resp B/P (MAP) Pulse Ox O2 Delivery O2 Flow Rate FiO2 03/22/20 15:39 97.9 73 18 119/77 (91) 95 Room Air Disposition: HOME, SELF-CARE Condition: Stable Scripts Ibuprofen (Ibu) 800 Mg Tablet 800 MG PO TID, #30 TAB Prov: Hortencia Byrnes 03/22/20 Hydrocodone Bit/Acetaminophen 5-325* (NORCO 5-325 TABLET*) 1 Each Tablet 1 TAB ORAL Q6H PRN for FOR PAIN for 4 Days, #16 TAB 0 Refills Prov: Hortencia Byrnes 03/22/20 Patient Instructions: Ankle Sprain, Fibular Fracture With Rehab-Sports[facility], Toe Fracture Additional Instructions: Take medication as directed, 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
[2020-03-22] MEDS ORDERED: NORCO 5-325 TA1 EAC1 ORAL (16:46)
[2020-03-22] MEDS ORDERED: IBU800 MG PO (16:46)
--- NOTE | 2020-03-22 17:17 | NUR ---
ED Nurse Note: Splint placed by EMT crutches provided
--- NOTE | 2020-03-22 17:18 | NUR ---
ER DISCHARGE NOTE: Patient is cleared to be discharged per ERMD, pt is aox4, on room air, with stable vital signs. pt was given dc and prescription instructions, pt was able to verbalize understanding, pt id band removed. pt is able to ambulate with steady gait. pt took all belongings.
[2020-03-22 17:19] VITALS: BP 122/79
== END 2020-03-22 17:38 | disposition home or self-care (01) ==
LOC: EMR 16:00
DX: S82.402A Unspecified fracture of shaft of left fibula, initial encounter for closed fracture (principal); S93.402A Sprain of unspecified ligament of left ankle, initial encounter; S92.919A Unspecified fracture of unspecified toe(s), initial encounter for closed fracture; X58.XXXA Exposure to other specified factors, initial encounter; Y92.9 Unspecified place or not applicable; Z88.8 Allergy status to other drugs, medicaments and biological substances; G40.909 Epilepsy, unspecified, not intractable, without status epilepticus
CPT/HCPCS: 29505; 73562; 73610; 73630; 96372; J1885; Z7502; 99284